=== PATIENT | female | born 1980 | race African-American/Black ===

== ENCOUNTER 2018-05-17 12:29 | Observation (INO) ==
[2018-05-17] MEDS ORDERED: Sod Chloride 0.9% Inj 1,000 ML IV.SIG ONE (12:33)
[2018-05-17 13:03] LABS: Baso # (Auto) 0.1 th/mm3 (0.0-0.2); Eos # (Auto) 0.1 th/mm3 (0.0-0.4); Eos % (Auto) 1.7 % (0.0-4.0); Hematocrit 24.4 % (35.0-46.0); Lymph # (Auto) 1.6 th/mm3 (1.0-4.8); Lymph % (Auto) 19.1 % (9.0-44.0); Mean Corpuscular Hemoglobin 15.6 pg (27.0-34.0); Mean Corpuscular Volume 55.4 fL (80.0-100.0); Mean Platelet Volume 8.7 fL (7.0-11.0); Mono % (Auto) 11.8 % (0.0-8.0); Neut # (Auto) 5.7 th/mm3 (1.8-7.7); Neut % (Auto) 66.4 % (16.0-70.0); Platelet Count 319 th/mm3 (150-450); Red Blood Count 4.41 mil/mm3 (4.00-5.30); Red Cell Distribution Width 25.7 % (11.6-17.2); White Blood Count 8.6 th/mm3 (4.0-11.0)
[2018-05-17 13:10] LABS: Mean Corpuscular HGB Conc 28.2 % (32.0-36.0)
[2018-05-17 13:13] LABS: Hemoglobin 6.9 gm/dL (11.6-15.3)
--- NOTE | 2018-05-17 13:13 | ED ---
HPI General Chief Complaint: Overdose Stated Complaint: Poss OD Time Seen by Provider: 05/17/18 12:32 Source: patient, EMS and old records reviewed Mode of arrival: EMS Limitations: altered mental status and other (intoxicated) History of Present Illness HPI Narrative: 38-year-old female that presents to the ED for evaluation of possible overdose. Patient apparently has been acting bizarre which is what prompted evaluation. [facility] was called because patient was acting bizarre in a community center. Apparently she frequents this center and the staff there were concerned because she was acting bizarre. Per EVAC she has been able to answer questions but she does go in and out of some bizarre behavior. She does have a history of polysubstance abuse. She denies any symptoms at this time but is hard to get a history from her. She denies any trauma. She does not appear to have any signs of trauma. No history of seizures. During my examination she is very restless and keeps moving all extremities. She jerks her head. She is having a hard time staying down. History is very limited. She does answer some yes or no questions but it is hard to assess as she continues to be very bizarre. Related Data Home Medications Medication Instructions Recorded Confirmed No Known Home Medications 03/25/18 03/25/18 Allergies Allergy/AdvReac Type Severity Reaction Status Date / Time No Known Allergies Allergy Verified 03/25/18 11:03 Review of Systems ROS: all other systems reviewed are negative PMFSH History History Provided By: Medical Record and Ict Business Analyst / EMT Medical History Medical History Medical history unknown (Acute) Substance abuse (Acute) Surgical history unknown (Acute) Social History Social History Substance History: Active Abuse Smoking Status: Unknown if ever smoked How Often Do You Have a Drink Containing Alcohol: Unable to Obtain Recent Travel in [place] within the Last 8 Weeks: No Recent Out of Country Travel within the Last 8 Weeks: No Exam Narrative Exam Narrative: GENERAL: Altered. SKIN: Focused skin assessment warm/dry. HEAD: Atraumatic. Normocephalic. EYES: Pupils equal and round. No scleral icterus. No injection or drainage. ENT: No nasal bleeding or discharge. Mucous membranes pink and moist. Tongue is midline. No uvula deviation. NECK: Trachea midline. No JVD. CARDIOVASCULAR: Regular rate and rhythm. No murmur appreciated. RESPIRATORY: No accessory muscle use. Clear to auscultation. Breath sounds equal bilaterally. GASTROINTESTINAL: Abdomen soft, non-tender, nondistended. Hepatic and splenic margins not palpable. MUSCULOSKELETAL: No obvious deformities. No clubbing. No cyanosis. No edema. Full range of motion of the upper and lower extremities bilaterally. 2+ pulses bilaterally. NEUROLOGICAL: Awake and alert. No obvious cranial nerve deficits. Motor grossly within normal limits. Normal speech. PSYCHIATRIC: Altered mood and affect; insight and judgment questionable. Course Initial Documented Vital Signs Respiratory Rate 18 05/17/18 12:33 Blood Pressure 132/83 05/17/18 12:33 Pulse Oximetry 100 05/17/18 12:33 Last Documented Vital Signs Respiratory Rate 18 05/17/18 12:33 Blood Pressure 132/83 05/17/18 12:33 Pulse Oximetry 98 05/17/18 14:11 Medical Decision Making [facility] Narrative Medical decision making narrative: 38-year-old female who presents to the ED for evaluation of overdose. Patient was properly examined and was found to have signs and symptoms consistent appears to be likely blood substance abuse. She is very hard to get a history. She appears to be very bizarre. Patient was given Ativan IV with improvement of the jerking. She answers some questions with again is really hard to get a history from her. I did review her records and she had a similar episode around March and she came positive for multiple drugs. She apparently does have a history of substance abuse and apparently has been using again. At this time labs and imaging were ordered. Labs and imaging were positive for what appears to be anemia. Unclear if this symptomatic. Patient herself is very altered. For secondary to a rectal exam because she is not consentable to do the rectal exam. He does appear that she does have anemia from her previous labs but this appears to be a little bit more down. I suspect that she might likely have a microcytic anemia that is chronic. I ordered blood. Because she is unfortunately still altered recommend admission for further evaluation and treatment. Case discussed with my attending who agrees with plan. Case discussed with residents agreed to admission to their service. Medical Screen Exam Complete: Yes Emergency Medical Condition: Yes Differential Diagnosis Differential Diagnosis: Altered mental status versus overdose versus polysubstance abuse Medical Records Medical records reviewed: Yes I reviewed the patient's medical records. Lab Data Lab results reviewed: Yes I reviewed the patient's lab results. Result diagrams: 05/17/18 12:50 05/17/18 12:50 Lab Results 05/17/18 05/17/18 05/17/18 Range/Units 12:50 12:50 12:50 WBC 8.6 (4.0-11.0) th/mm3 RBC 4.41 (4.00-5.30) mil/mm3 Hgb 6.9 L* (11.6-15.3) gm/dL Hct 24.4 L (35.0-46.0) % MCV 55.4 L (80.0-100.0) fL MCH 15.6 L (27.0-34.0) pg MCHC 28.2 L (32.0-36.0) % RDW 25.7 H (11.6-17.2) % Plt Count 319 (150-450) th/mm3 MPV 8.7 (7.0-11.0) fL Prelim Diff (Auto) Slide review pending Neut % (Auto) 66.4 (16.0-70.0) % Lymph % (Auto) 19.1 (9.0-44.0) % [place] % (Auto) 11.8 H (0.0-8.0) % Eos % (Auto) 1.7 (0.0-4.0) % Baso % (Auto) 1.0 (0.0-2.0) % Neut # (Auto) 5.7 (1.8-7.7) th/mm3 Lymph # (Auto) 1.6 (1.0-4.8) th/mm3 [place] # (Auto) 1.0 H (0.0-0.9) th/mm3 Eos # (Auto) 0.1 (0.0-0.4) th/mm3 Baso # (Auto) 0.1 (0.0-0.2) th/mm3 WBC Differential . Diff Scan Auto diff confirmed Differential Comment . Platelet Estimate Normal (Normal) Platelet Morphology Normal (Normal) Dimorphic RBCs Present H (None) Target Cells 1+ H (None) Tear Drop Cells 1+ H (None) Acanthocytes (Spur) Occ H (None) PT 10.7 (9.8-11.6) sec INR 1.1 Ratio Sodium 142 (136-145) meq/L Potassium 3.0 L (3.5-5.1) meq/L Chloride 106 (98-107) meq/L Carbon Dioxide 29.6 (21.0-32.0) meq/L Anion Gap 6 (5-15) meq/L BUN 7 (7-18) mg/dL Creatinine 0.96 (0.50-1.00) mg/dL Estimated GFR 78 L (>89) mL/min Random Glucose 85 (74-106) mg/dL Lactic Acid (0.4-2.0) mmol/L Calcium 8.4 L (8.5-10.1) mg/dL Total Bilirubin 0.3 (0.2-1.0) mg/dL AST 22 (15-37) U/L ALT 16 (10-53) U/L Alkaline Phosphatase 94 (45-117) U/L Total Protein 7.6 (6.4-8.2) g/dL Albumin 3.3 L (3.4-5.0) g/dL Salicylates (2.8-20.0) mg/dL Acetaminophen Less than 2.0 L (10.0-30.0) mcg/mL Serum Alcohol Less than 3 (0-5) mg/dL Blood Type Blood Type Recheck Antibody Screen MTS Gel Crossmatch 05/17/18 05/17/18 05/17/18 Range/Units 12:50 12:50 13:16 WBC (4.0-11.0) th/mm3 RBC (4.00-5.30) mil/mm3 Hgb (11.6-15.3) gm/dL Hct (35.0-46.0) % MCV (80.0-100.0) fL MCH (27.0-34.0) pg MCHC (32.0-36.0) % RDW (11.6-17.2) % Plt Count (150-450) th/mm3 MPV (7.0-11.0) fL Prelim Diff (Auto) Neut % (Auto) (16.0-70.0) % Lymph % (Auto) (9.0-44.0) % [place] % (Auto) (0.0-8.0) % Eos % (Auto) (0.0-4.0) % Baso % (Auto) (0.0-2.0) % Neut # (Auto) (1.8-7.7) th/mm3 Lymph # (Auto) (1.0-4.8) th/mm3 [place] # (Auto) (0.0-0.9) th/mm3 Eos # (Auto) (0.0-0.4) th/mm3 Baso # (Auto) (0.0-0.2) th/mm3 WBC Differential Diff Scan Differential Comment Platelet Estimate (Normal) Platelet Morphology (Normal) Dimorphic RBCs (None) Target Cells (None) Tear Drop Cells (None) Acanthocytes (Spur) (None) PT (9.8-11.6) sec INR Ratio Sodium (136-145) meq/L Potassium (3.5-5.1) meq/L Chloride (98-107) meq/L Carbon Dioxide (21.0-32.0) meq/L Anion Gap (5-15) meq/L BUN (7-18) mg/dL Creatinine (0.50-1.00) mg/dL Estimated GFR (>89) mL/min Random Glucose (74-106) mg/dL Lactic Acid 0.9 (0.4-2.0) mmol/L Calcium (8.5-10.1) mg/dL Total Bilirubin (0.2-1.0) mg/dL AST (15-37) U/L ALT (10-53) U/L Alkaline Phosphatase (45-117) U/L Total Protein (6.4-8.2) g/dL Albumin (3.4-5.0) g/dL Salicylates 3.7 (2.8-20.0) mg/dL Acetaminophen (10.0-30.0) mcg/mL Serum Alcohol (0-5) mg/dL Blood Type B Positive Blood Type Recheck Not needed Antibody Screen Negative MTS Gel Crossmatch 05/17/18 Range/Units 15:03 WBC (4.0-11.0) th/mm3 RBC (4.00-5.30) mil/mm3 Hgb (11.6-15.3) gm/dL Hct (35.0-46.0) % MCV (80.0-100.0) fL MCH (27.0-34.0) pg MCHC (32.0-36.0) % RDW (11.6-17.2) % Plt Count (150-450) th/mm3 MPV (7.0-11.0) fL Prelim Diff (Auto) Neut % (Auto) (16.0-70.0) % Lymph % (Auto) (9.0-44.0) % [place] % (Auto) (0.0-8.0) % Eos % (Auto) (0.0-4.0) % Baso % (Auto) (0.0-2.0) % Neut # (Auto) (1.8-7.7) th/mm3 Lymph # (Auto) (1.0-4.8) th/mm3 [place] # (Auto) (0.0-0.9) th/mm3 Eos # (Auto) (0.0-0.4) th/mm3 Baso # (Auto) (0.0-0.2) th/mm3 WBC Differential Diff Scan Differential Comment Platelet Estimate (Normal) Platelet Morphology (Normal) Dimorphic RBCs (None) Target Cells (None) Tear Drop Cells (None) Acanthocytes (Spur) (None) PT (9.8-11.6) sec INR Ratio Sodium (136-145) meq/L Potassium (3.5-5.1) meq/L Chloride (98-107) meq/L Carbon Dioxide (21.0-32.0) meq/L Anion Gap (5-15) meq/L BUN (7-18) mg/dL Creatinine (0.50-1.00) mg/dL Estimated GFR (>89) mL/min Random Glucose (74-106) mg/dL Lactic Acid (0.4-2.0) mmol/L Calcium (8.5-10.1) mg/dL Total Bilirubin (0.2-1.0) mg/dL AST (15-37) U/L ALT (10-53) U/L Alkaline Phosphatase (45-117) U/L Total Protein (6.4-8.2) g/dL Albumin (3.4-5.0) g/dL Salicylates (2.8-20.0) mg/dL Acetaminophen (10.0-30.0) mcg/mL Serum Alcohol (0-5) mg/dL Blood Type Blood Type Recheck Antibody Screen MTS Gel Crossmatch See Detail Imaging Data Attestation: I personally reviewed and interpreted this imaging study as follows : Radiologist's impression: Head CT 05/17/18 12:46 CONCLUSION: 1. No evidence of acute intracranial abnormality. . Discharge Plan Physicians Team ED Provider: David Donaldson ED Midlevel Provider: Sonido Matt Primary Care Provider: Primary Care Farhani,Jazlyn Rxs /Orders / Referrals /Forms Prescriptions: No Action No Known Home Medications RF: 0 Status ED Status: With Doctor
[2018-05-17 13:22] LABS: INR 1.1 Ratio; Prothrombin Time 10.7 sec (9.8-11.6)
[2018-05-17 13:29] LABS: Alanine Aminotransferase 16 U/L (10-53); Albumin 3.3 g/dL (3.4-5.0); Anion Gap 6 meq/L (5-15); Aspartate Aminotransferase 22 U/L (15-37); Blood Urea Nitrogen 7 mg/dL (7-18); Calcium 8.4 mg/dL (8.5-10.1); Carbon Dioxide 29.6 meq/L (21.0-32.0); Chloride 106 meq/L (98-107); Glomerular Filtration Rate 78 mL/min (>89); Glucose,Random 85 mg/dL (74-106); Sodium 142 meq/L (136-145)
[2018-05-17 13:30] LABS: Alkaline Phosphatase 94 U/L (45-117); Total Protein 7.6 g/dL (6.4-8.2)
[2018-05-17 13:40] LABS: Target Cells 1+; Tear Drop Cells 1+
[2018-05-17 13:41] LABS: Acanthocytes Occ; Dimorphic RBC Present; Platelet Estimate Normal (Normal); Platelet Morphology Normal (Normal)
--- NOTE | 2018-05-17 13:51 | CT ---
EXAM DATE: 05/17/2018 12:55 PM EDT AGE/SEX: 38 years / Female INDICATIONS: Altered mental status CLINICAL DATA: This is the patient's initial encounter. Patient reports that signs and symptoms have been present for 1 day and indicates a pain score of 0/10. MEDICAL/SURGICAL HISTORY: None. None. RADIATION DOSE: 42.01 CTDI (mGy) COMPARISON: No prior exams available for comparison. TECHNIQUE: CT of the head without contrast. Using automated exposure control and adjustment of the mA and/or kV according to patient size, radiation dose was kept as low as reasonably achievable to ob tain optimal diagnostic quality images. DICOM format image data is available electronically for revi ew and comparison. FINDINGS: Cerebrum: The ventricles are normal for age. No evidence of midline shift, mass lesion, hemorrhage or acute infarction. No extraaxial fluid collections are seen. Metallic foreign bodies are noted wit hin the posterior parietal skull bilaterally. Posterior Fossa: The cerebellum and brainstem are intact. The 4th ventricle is midline. The cerebe llopontine angle is unremarkable. Extracranial: The visualized portion of the orbits is intact. Skull: The calvaria is intact. No evidence of skull fracture. CONCLUSION: 1. No evidence of acute intracranial abnormality. . Electronically signed by: Antonio Portillo MD 05/17/2018 1:49 PM EDT
--- NOTE | 2018-05-17 15:36 | P.HPFP ---
History of Present Illness Primary Care Physician: No Primary Care Physician <Maggy Arias 05/18/18 13:06> No Primary Care Physician <Trudy Ann 05/17/18 15:36> Chief Complaint: suspected substance abuse <Trudy Ann 05/17/18 16:38> History of Present Illness: Story as provided by ED physician. Pt unable to provide any history. Did not answer to questions. Was shaking and moving in bed. Was slightly cooperative with minimal physical exam. <Trudy Ann 05/17/18 16:38> - Diagnosis (1) Altered mental status (2) Substance abuse (3) Anemia (4) Hypokalemia <Trudy Ann V 05/17/18 16:13> (1) Cocaine intoxication (2) Altered mental status (3) Anemia (4) Heart murmur (5) Hypokalemia <Maggy Arias 05/18/18 13:06> Review of Systems unobtainable due to mental status <Trudy Ann 05/17/18 16:38> PMFSH - History History Provided By: Medical Record, Sorter/Assay Tech / EMT <Trudy Ann 05/17/18 15:36> - Medical / Surgical Hx Neg / Unobtainable Medical Problems Denied: Unable to Obtain <Trudy Ann 05/17/18 16 :38> - Medical History Medical History: Medical History (Last Reviewed 05/17/18 @ 16:16 by Trudy Ortega MD, R1 ) Medical history unknown Substance abuse Surgical history unknown <Maggy Arias 05/18/18 13:06> Medical History (Last Reviewed 05/17/18 @ 16:16 by Trudy Ortega MD, R1 ) Medical history unknown Substance abuse Surgical history unknown <Trudy Ann 05/17/18 16:38> - Tobacco History Smoking Status: Unknown if ever smoked <Trudy Ann V 05/17/18 15:36 > - Alcohol History How Often Do You Have a Drink Containing Alcohol: Unable to Obtain <Trudy Ann V 05/17/18 15:36> - Substance Use History Substance History: Active Abuse <Trudy Ann V 05/17/18 15:36> - Travel History Recent Travel in the [place] Within the Last 8 Weeks: No <Trudy Ann V 05/17/18 15:36> Recent Travel Out of the Country Within the Last 8 Weeks: No <Trudy Ann V 05/17/18 15:36> - Immunization History Tetanus Immunization: Unable to Assess <Trudy Ann V 05/17/18 15:36 > Hx Influenza Vaccine This Season: Unable to Assess <Trudy Ann V 15:36> Medications and Allergies Allergies Allergy/AdvReac Type Severity Reaction Status Date / Time No Known Allergies Allergy Verified 03/25/18 11:03 <Maggy Arias 05/18/18 13:06> Home Medications Medication Instructions Recorded Confirmed Type No Known Home Medications 03/25/18 03/25/18 History <Maggy Arias 05/18/18 13:06> Active Medications: Active Medications Acetaminophen (Tylenol) 650 mg PO Q4H PRN PRN Reason: Temp > 100.4 Ferrous Sulfate (Ferosul) 325 mg PO BID@1200,1700 WALTER Potassium Chloride/Sodium Chloride (Ns + Kcl 20 Meq Inj) 1,000 mls @ 140 mls/ hr IV.CONT .Q7H9M WALTER Last Admin: 05/18/18 11:02 Dose: 140 mls/hr Lorazepam (Ativan Inj) 1 mg IV.PUSH Q4H PRN PRN Reason: WITHDRAWAL Last Admin: 05/18/18 11:02 Dose: 1 mg Ondansetron HCl (Zofran Inj) 4 mg IV.PUSH Q6H PRN PRN Reason: NAUSEA OR VOMITING <Maggy Arias 05/18/18 13:06> Exam Vital signs: Vital Signs 05/17/18 14:11 05/17/18 14:30 05/17/18 20:00 Temperature 98.4 F Pulse Rate 92 H 80 Respiratory Rate 19 18 Blood Pressure 135/78 144/72 H Pulse Oximetry 98 99 98 05/18/18 00:00 05/18/18 03:32 05/18/18 08:00 Temperature 99.4 F 98.9 F 98.1 F Pulse Rate 64 74 87 Respiratory Rate 18 16 18 Blood Pressure 167/80 H 121/75 149/86 H Pulse Oximetry 99 100 18 L 05/18/18 12:00 Temperature 98.1 F Pulse Rate 90 Respiratory Rate 20 Blood Pressure 151/97 H Pulse Oximetry 99 Intake & Output 05/17/18 05/18/18 05/18/18 18:59 06:59 18:59 Intake Total 1000 / 1000 1010 / 1010 1000 / 1000 Balance 1000 / 1000 1010 / 1010 1000 / 1000 Weight 104.326 kg 104.326 kg Intake: IV 1000 / 1000 1010 / 1010 1000 / 1000 NS + KCl 20 mEq Inj 1,000 ML @ 1000 / 1000 140 mls/hr IV.CONT .Q7H9M WALTER Rx#:[id number] KCl Inj 20 MEQ In NS Inj 1,000 1010 / 1010 ML @ 140 mls/hr IV.CONT .Q7H13M WALTER Rx#:[id number] NS Inj 1,000 ML @ Wide Open IV. 1000 / 1000 SIG BOLUS ONE Rx#:[id number] Other: # Voids 3 Weight On Admission 104.326 kg <Maggy Arias R - 05/18/18 13:06> Vital Signs 05/17/18 12:33 05/17/18 14:11 Respiratory Rate 18 Blood Pressure 132/83 Pulse Oximetry 100 98 <Trudy Ann V - 05/17/18 15:36> Narrative: Limited Physical Exam due to patient's current status GENERAL: pt laying in be moving all extremities. Non cooperative, will not answer questions. Continuously moving. SKIN: Warm and dry. HEAD: Normocephalic. EYES: unable to visualize. Pt will not open her eyes CARDIOVASCULAR: limited. Regular rate and rhythm RESPIRATORY: Breath sounds equal bilaterally. No accessory muscle use. GASTROINTESTINAL: Abdomen soft, +BS MUSCULOSKELETAL: No cyanosis, or edema. <Trudy Ann V - 05/17/18 16:38> Results - Labs Result diagrams: 05/18/18 06:58 05/18/18 06:58 <Maggy Arias - 05/18/18 13:06> Abnormal lab results 05/17/18 05/17/18 05/17/18 Range/Units 12:50 12:50 15:03 Hgb 6.9 L* (11.6-15.3) gm/dL Hct 24.4 L (35.0-46.0) % MCV 55.4 L (80.0-100.0) fL MCH 15.6 L (27.0-34.0) pg MCHC 28.2 L (32.0-36.0) % RDW 25.7 H (11.6-17.2) % [place] % (Auto) 11.8 H (0.0-8.0) % [place] # (Auto) 1.0 H (0.0-0.9) th/mm3 Dimorphic RBCs Present H (None) Target Cells 1+ H (None) Tear Drop Cells 1+ H (None) Ovalocytes (None) Acanthocytes (Spur) Occ H (None) Potassium 3.0 L (3.5-5.1) meq/L Chloride (98-107) meq/L BUN (7-18) mg/dL Estimated GFR 78 L (>89) mL/min Random Glucose (74-106) mg/dL Calcium 8.4 L (8.5-10.1) mg/dL Iron (50-170) mcg/dL % Saturation (20-50) % Albumin 3.3 L (3.4-5.0) g/dL Urine Clarity (Clear) Urine Ketones (Negative) mg/dL Urine Mucus (Occasional) /lpf Acetaminophen Less than 2.0 L (10.0-30.0) mcg/mL Urine Cocaine Screen (Neg) MTS Gel Crossmatch See Detail 05/17/18 05/18/18 05/18/18 Range/Units 20:15 01:33 01:33 Hgb 7.2 L (11.6-15.3) gm/dL Hct 24.8 L (35.0-46.0) % MCV (80.0-100.0) fL MCH (27.0-34.0) pg MCHC (32.0-36.0) % RDW (11.6-17.2) % [place] % (Auto) (0.0-8.0) % [place] # (Auto) (0.0-0.9) th/mm3 Dimorphic RBCs (None) Target Cells (None) Tear Drop Cells (None) Ovalocytes (None) Acanthocytes (Spur) (None) Potassium (3.5-5.1) meq/L Chloride (98-107) meq/L BUN (7-18) mg/dL Estimated GFR (>89) mL/min Random Glucose (74-106) mg/dL Calcium (8.5-10.1) mg/dL Iron (50-170) mcg/dL % Saturation (20-50) % Albumin (3.4-5.0) g/dL Urine Clarity Hazy H (Clear) Urine Ketones Trace H (Negative) mg/dL Urine Mucus Few H (Occasional) /lpf Acetaminophen (10.0-30.0) mcg/mL Urine Cocaine Screen Pos H (Neg) MTS Gel Crossmatch 05/18/18 05/18/18 05/18/18 Range/Units 06:58 06:58 06:58 Hgb 7.1 L (11.6-15.3) gm/dL Hct 25.1 L (35.0-46.0) % MCV 55.4 L (80.0-100.0) fL MCH 15.8 L (27.0-34.0) pg MCHC 28.5 L (32.0-36.0) % RDW 25.7 H (11.6-17.2) % [place] % (Auto) 13.2 H (0.0-8.0) % [place] # (Auto) (0.0-0.9) th/mm3 Dimorphic RBCs (None) Target Cells (None) Tear Drop Cells (None) Ovalocytes 1+ H (None) Acanthocytes (Spur) (None) Potassium 3.1 L (3.5-5.1) meq/L Chloride 109 H (98-107) meq/L BUN 6 L (7-18) mg/dL Estimated GFR (>89) mL/min Random Glucose 72 L (74-106) mg/dL Calcium 7.8 L (8.5-10.1) mg/dL Iron 9 L (50-170) mcg/dL % Saturation 2.5 L (20-50) % Albumin 2.8 L (3.4-5.0) g/dL Urine Clarity (Clear) Urine Ketones (Negative) mg/dL Urine Mucus (Occasional) /lpf Acetaminophen (10.0-30.0) mcg/mL Urine Cocaine Screen (Neg) MTS Gel Crossmatch Short CBC 05/17/18 05/17/18 05/18/18 Range/Units 12:50 20:15 06:58 WBC 8.6 6.0 (4.0-11.0) th/mm3 Hgb 6.9 L* 7.2 L 7.1 L (11.6-15.3) gm/dL Hct 24.4 L 24.8 L 25.1 L (35.0-46.0) % Plt Count 319 344 (150-450) th/mm3 BMP 05/17/18 05/18/18 12:50 06:58 Sodium 142 143 Potassium 3.0 L 3.1 L Chloride 106 109 H Carbon Dioxide 29.6 25.8 BUN 7 6 L Creatinine 0.96 0.78 Calcium 8.4 L 7.8 L Liver Function 05/17/18 05/18/18 Range/Units 12:50 06:58 Total Bilirubin 0.3 0.3 (0.2-1.0) mg/dL AST 22 20 (15-37) U/L ALT 16 14 (10-53) U/L Alkaline Phosphatase 94 84 (45-117) U/L Albumin 3.3 L 2.8 L (3.4-5.0) g/dL Urine 05/18/18 Range/Units 01:33 Urine Color Yellow (Yellw/Straw) Urine Clarity Hazy H (Clear) Urine pH 6.0 (5.0-8.5) Ur Specific [place] 1.016 (1.002-1.035) Urine Protein Negative (Neg-Trace) mg/dL Urine Glucose (UA) Negative (Negative) mg/dL <Maggy Arias - 05/18/18 13:06> Abnormal lab results 05/17/18 05/17/18 05/17/18 Range/Units 12:50 12:50 15:03 Hgb 6.9 L* (11.6-15.3) gm/dL Hct 24.4 L (35.0-46.0) % MCV 55.4 L (80.0-100.0) fL MCH 15.6 L (27.0-34.0) pg MCHC 28.2 L (32.0-36.0) % RDW 25.7 H (11.6-17.2) % [place] % (Auto) 11.8 H (0.0-8.0) % [place] # (Auto) 1.0 H (0.0-0.9) th/mm3 Dimorphic RBCs Present H (None) Target Cells 1+ H (None) Tear Drop Cells 1+ H (None) Acanthocytes (Spur) Occ H (None) Potassium 3.0 L (3.5-5.1) meq/L Estimated GFR 78 L (>89) mL/min Calcium 8.4 L (8.5-10.1) mg/dL Albumin 3.3 L (3.4-5.0) g/dL Acetaminophen Less than 2.0 L (10.0-30.0) mcg/mL MTS Gel Crossmatch See Detail Short CBC 05/17/18 Range/Units 12:50 WBC 8.6 (4.0-11.0) th/mm3 Hgb 6.9 L* (11.6-15.3) gm/dL Hct 24.4 L (35.0-46.0) % Plt Count 319 (150-450) th/mm3 BMP 05/17/18 12:50 Sodium 142 Potassium 3.0 L Chloride 106 Carbon Dioxide 29.6 BUN 7 Creatinine 0.96 Calcium 8.4 L Liver Function 05/17/18 Range/Units 12:50 Total Bilirubin 0.3 (0.2-1.0) mg/dL AST 22 (15-37) U/L ALT 16 (10-53) U/L Alkaline Phosphatase 94 (45-117) U/L Albumin 3.3 L (3.4-5.0) g/dL <Trudy Ann V - 05/17/18 15:36> - Imaging Impressions Head CT 05/17/18 12:46 CONCLUSION: 1. No evidence of acute intracranial abnormality. . <Maggy Arias - 05/18/18 13:06> Impressions Head CT 05/17/18 12:46 CONCLUSION: 1. No evidence of acute intracranial abnormality. . <Trudy Ann V - 05/17/18 15:36> Caprini VTE Risk Assessment Caprini VTE Risk Assessment: No/Low Risk (score <= 1) <Trudy Ann 05/17/18 16:38> Caprini Risk Assessment Model: Point Value = 1 Point Value = 2 Point Value = 3 Point Value = 5 Age 41-60 Minor surgery BMI > 25 kg/m2 Swollen legs Varicose veins or History of unexplained or recurrent spontaneous Oral contraceptives or hormone replacement Sepsis (< 1 month) Serious lung disease, including pneumonia (< 1 month) Abnormal pulmonary function Acute myocardial infarction Congestive heart failure (< 1 month) History of inflammatory bowel disease Medical patient at bed rest Age 61-74 Arthroscopic surgery Major open surgery (> 45 min) Laparoscopic surgery (> 45 min) Malignancy Confined to bed (> 72 hours) Immobilizing plaster cast Central venous access Age >= 75 History of VTE Family history of VTE Factor V Leiden Prothrombin [id number] Lupus anticoagulant Anticardiolipin antibodies Elevated serum homocysteine Heparin-induced thrombocytopenia Other congenital or acquired thrombophilia Stroke (< 1 month) Elective arthroplasty Hip, pelvis, or leg fracture Acute spinal cord injury (< 1 month) <Maggy Arias R - 05/18/18 13:06> Point Value = 1 Point Value = 2 Point Value = 3 Point Value = 5 Age 41-60 Minor surgery BMI > 25 kg/m2 Swollen legs Varicose veins or History of unexplained or recurrent spontaneous Oral contraceptives or hormone replacement Sepsis (< 1 month) Serious lung disease, including pneumonia (< 1 month) Abnormal pulmonary function Acute myocardial infarction Congestive heart failure (< 1 month) History of inflammatory bowel disease Medical patient at bed rest Age 61-74 Arthroscopic surgery Major open surgery (> 45 min) Laparoscopic surgery (> 45 min) Malignancy Confined to bed (> 72 hours) Immobilizing plaster cast Central venous access Age >= 75 History of VTE Family history of VTE Factor V Leiden Prothrombin [id number] Lupus anticoagulant Anticardiolipin antibodies Elevated serum homocysteine Heparin-induced thrombocytopenia Other congenital or acquired thrombophilia Stroke (< 1 month) Elective arthroplasty Hip, pelvis, or leg fracture Acute spinal cord injury (< 1 month) <Trudy Ann V - 05/17/18 15:36> Prophylaxis Regimen: Total Risk Factor Score Risk Level Prophylaxis Regimen 0-1 Low Early ambulation 2 Moderate Order ONE of the following: *Sequential Compression Device (SCD) *Heparin 5000 units SQ BID 3-4 Higher Order ONE of the following medications: *Heparin 5000 units SQ TID *Enoxaparin/Lovenox 40 mg SQ daily (WT < 150 kg, CrCl > 30 mL/min) *Enoxaparin/Lovenox 30 mg SQ daily (WT < 150 kg, CrCl > 10-29 mL/min) *Enoxaparin/Lovenox 30 mg SQ BID (WT < 150 kg, CrCl > 30 mL/min) AND/OR *Sequential Compression Device (SCD) 5 or more Highest Order ONE of the following medications: *Heparin 5000 units SQ TID (Preferred with Epidurals) *Enoxaparin/Lovenox 40 mg SQ daily (WT < 150 kg, CrCl > 30 mL/min) *Enoxaparin/Lovenox 30 mg SQ daily (WT < 150 kg, CrCl > 10-29 mL/min) *Enoxaparin/Lovenox 30 mg SQ BID (WT < 150 kg, CrCl > 30 mL/min) AND *Sequential Compression Device (SCD) <Maggy Arias R - 05/18/18 13:06> Total Risk Factor Score Risk Level Prophylaxis Regimen 0-1 Low Early ambulation 2 Moderate Order ONE of the following: *Sequential Compression Device (SCD) *Heparin 5000 units SQ BID 3-4 Higher Order ONE of the following medications: *Heparin 5000 units SQ TID *Enoxaparin/Lovenox 40 mg SQ daily (WT < 150 kg, CrCl > 30 mL/min) *Enoxaparin/Lovenox 30 mg SQ daily (WT < 150 kg, CrCl > 10-29 mL/min) *Enoxaparin/Lovenox 30 mg SQ BID (WT < 150 kg, CrCl > 30 mL/min) AND/OR *Sequential Compression Device (SCD) 5 or more Highest Order ONE of the following medications: *Heparin 5000 units SQ TID (Preferred with Epidurals) *Enoxaparin/Lovenox 40 mg SQ daily (WT < 150 kg, CrCl > 30 mL/min) *Enoxaparin/Lovenox 30 mg SQ daily (WT < 150 kg, CrCl > 10-29 mL/min) *Enoxaparin/Lovenox 30 mg SQ BID (WT < 150 kg, CrCl > 30 mL/min) AND *Sequential Compression Device (SCD) <Trudy Ann V - 05/17/18 15:36> Assessment and Plan - Assessment (1) Altered mental status Code(s): R41.82 - Altered mental status, unspecified Status: Acute (2) Substance abuse Code(s): F19.10 - Other psychoactive substance abuse, uncomplicated Status: Acute (3) Anemia Code(s): D64.9 - Anemia, unspecified Status: Acute (4) Hypokalemia Code(s): E87.6 - Hypokalemia Status: Acute <Trudy Ann 05/17/18 16:13> (1) Cocaine intoxication Code(s): F14.929 - Cocaine use, unspecified with intoxication, unspecified Status: Acute (2) Altered mental status Code(s): R41.82 - Altered mental status, unspecified Status: Resolved (3) Anemia Code(s): D64.9 - Anemia, unspecified Status: Chronic (4) Heart murmur Code(s): R01.1 - Cardiac murmur, unspecified Status: Acute (5) Hypokalemia Code(s): E87.6 - Hypokalemia Status: Acute <Maggy Arias 05/18/18 13:06> - Assessment and Plan 42 yr old AA female with no known PMH presenting via EMS transport due to strange behavior at [facility] she attends frequently. Prior ED visit in March with similar presentation was positive for cocaine. Unable to obtain a UDS yet. CT scan of head negative for acute bleed. Pt received IV fluids, and Ativan. Pt has a Hb of 6.7 of unknown cause. Prior hospitalization her Hb was 7.7. At this moment, pt is unable to consent to a blood transfusion. Will wait and re-evaluate. Anticipate DC in 24-48 hrs Plan - Obtain UDS when possible - Obtain blood transfusion consent when possible - Recheck Hematocrit and Hemoglobin this evening - Consider Hemoccult when patient is more cooperative - Replace K+ with 40mEq KCl and recheck in AM - Regular diet, PO hydration - SCD bilateral for DVT prophylaxis <Trudy Ann 05/17/18 16:38> Discussed Condition With: Dr. Arias and Dr. Grant <Trudy Ann 05/17/18 16:38> - Attending Attestation Late entry -- patient was seen and examined with the resident team on May 17. Agree with exam and assessment and plan as above. <Maggy Arias R - 05/18/18 13:06> <ChelseaTrudy Andres V - Last Filed: 05/17/18 16:13> (3) Anemia Qualifiers: Anemia type: unspecified type Qualified Code(s): D64.9 - Anemia, unspecified <Maggy Arias R - Last Filed: 05/18/18 13:06> (3) Anemia Qualifiers: Anemia type: unspecified type Qualified Code(s): D64.9 - Anemia, unspecified <Trudy Ann V - Last Filed: 05/17/18 16:13> (3) Anemia Qualifiers: Anemia type: unspecified type Qualified Code(s): D64.9 - Anemia, unspecified <Maggy Arias R - Last Filed: 05/18/18 13:06> (3) Anemia Qualifiers: Anemia type: unspecified type Qualified Code(s): D64.9 - Anemia, unspecified
[2018-05-17] MEDS ORDERED: Acetaminophen 325 MG Tablet PO PRN (16:04)
[2018-05-17] MEDS: Potassium Chloride Inj 20 MEQ in Sod Chloride 0.9% Inj 1,000 ML IV.CONT SCH (20:35)
[2018-05-17 20:40] LABS: Hematocrit 24.8 % (35.0-46.0); Hemoglobin 7.2 gm/dL (11.6-15.3)
[2018-05-18 01:51] LABS: Bilirubin,Urine Negative (Negative); Clarity,Urine Hazy (Clear); Color,Urine Yellow (Yellw/Straw); Glucose,Urine (UA) Negative (Negative); Leukocyte Esterase,Urine Negative (Negative); Mucus,Urine Few /lpf (Occasional); Nitrite,Urine Negative (Negative); Specific Gravity,Urine 1.016 (1.002-1.035); Squamous Epithelial Cell,Urine 2 /hpf (0-5)
[2018-05-18 01:53] LABS: Amphetamine Screen,Urine Neg (Neg); Barbiturate Screen,Urine Neg (Neg); Cannabinoid Screen,Urine Neg (Neg); Cocaine Screen,Urine Pos (Neg); Opiate Screen,Urine Neg (Neg)
[2018-05-18] MEDS: Potassium Chloride Inj 20 MEQ in Sod Chloride 0.9% Inj 1,000 ML IV.CONT SCH (02:19)
[2018-05-18 08:01] LABS: Albumin 2.8 g/dL (3.4-5.0); Anion Gap 8 meq/L (5-15); Aspartate Aminotransferase 20 U/L (15-37); Blood Urea Nitrogen 6 mg/dL (7-18); Calcium 7.8 mg/dL (8.5-10.1); Carbon Dioxide 25.8 meq/L (21.0-32.0); Chloride 109 meq/L (98-107); Glomerular Filtration Rate Greater Than 89 mL/min (>89); Glucose,Random 72 mg/dL (74-106); Potassium 3.1 meq/L (3.5-5.1); Sodium 143 meq/L (136-145)
[2018-05-18 08:02] LABS: Alanine Aminotransferase 14 U/L (10-53)
[2018-05-18 08:04] LABS: Alkaline Phosphatase 84 U/L (45-117); Total Protein 7.1 g/dL (6.4-8.2)
[2018-05-18 08:30] LABS: Baso % (Auto) 0.8 % (0.0-2.0); Eos # (Auto) 0.2 th/mm3 (0.0-0.4); Eos % (Auto) 3.6 % (0.0-4.0); Hematocrit 25.1 % (35.0-46.0); Hemoglobin 7.1 gm/dL (11.6-15.3); Lymph # (Auto) 1.3 th/mm3 (1.0-4.8); Lymph % (Auto) 21.2 % (9.0-44.0); Mean Corpuscular Hemoglobin 15.8 pg (27.0-34.0); Mean Corpuscular Volume 55.4 fL (80.0-100.0); Mean Platelet Volume 8.8 fL (7.0-11.0); Mono # (Auto) 0.8 th/mm3 (0.0-0.9); Mono % (Auto) 13.2 % (0.0-8.0); Neut # (Auto) 3.7 th/mm3 (1.8-7.7); Neut % (Auto) 61.2 % (16.0-70.0); Platelet Count 344 th/mm3 (150-450); Red Blood Count 4.52 mil/mm3 (4.00-5.30); Red Cell Distribution Width 25.7 % (11.6-17.2)
[2018-05-18 08:32] LABS: Mean Corpuscular HGB Conc 28.5 % (32.0-36.0)
[2018-05-18 09:30] LABS: Ovalocytes 1+
[2018-05-18 09:53] LABS: % Iron Saturation 2.5 % (20-50)
[2018-05-18 10:18] LABS: Folate 8.1 ng/mL (3.1-17.5)
--- NOTE | 2018-05-18 11:44 | ECG ---
Date Performed: 05/17/2018 Time Performed: 12:47:22 PTAGE: 38 years EKG: Sinus rhythm MINIMAL VOLTAGE CRITERIA FOR LVH, CONSIDER NORMAL VARIANT NONSPECIFIC T-WAVE ABNORMALITY BORDERLINE ECG INTERPRETATION BASED ON A DEFAULT AGE OF 38 YEARS NO PREVIOUS TRACING DOCTOR: Tolu Soto Interpretating Date/Time 05/18/2018 11:43:18
--- NOTE | 2018-05-18 12:35 | P.PNFP ---
Subjective Interval history: Patient was seen and evaluated this morning. She reports not feeling well. She is nauseous but denies vomiting. She feels as if her heart skips beats. Patient denies chest pain and shortness of breath. Patient admits to taking many different drugs yesterday in an attempt to commit suicide. She reports no support system. She is currently homeless. While she has a history of drug addiction, she says that she has been clean for three years and just recently relapsed. All questions were answered. <Renata Fonseca - 05/18/18 12:34> Results - Labs Result diagrams: 05/18/18 06:58 05/18/18 06:58 <Maggy Arias - 05/18/18 13:08> Abnormal lab results 05/17/18 05/17/18 05/17/18 Range/Units 12:50 12:50 15:03 Hgb 6.9 L* (11.6-15.3) gm/dL Hct 24.4 L (35.0-46.0) % MCV 55.4 L (80.0-100.0) fL MCH 15.6 L (27.0-34.0) pg MCHC 28.2 L (32.0-36.0) % RDW 25.7 H (11.6-17.2) % [place] % (Auto) 11.8 H (0.0-8.0) % [place] # (Auto) 1.0 H (0.0-0.9) th/mm3 Dimorphic RBCs Present H (None) Target Cells 1+ H (None) Tear Drop Cells 1+ H (None) Ovalocytes (None) Acanthocytes (Spur) Occ H (None) Potassium 3.0 L (3.5-5.1) meq/L Chloride (98-107) meq/L BUN (7-18) mg/dL Estimated GFR 78 L (>89) mL/min Random Glucose (74-106) mg/dL Calcium 8.4 L (8.5-10.1) mg/dL Iron (50-170) mcg/dL % Saturation (20-50) % Albumin 3.3 L (3.4-5.0) g/dL Urine Clarity (Clear) Urine Ketones (Negative) mg/dL Urine Mucus (Occasional) /lpf Acetaminophen Less than 2.0 L (10.0-30.0) mcg/mL Urine Cocaine Screen (Neg) MTS Gel Crossmatch See Detail 05/17/18 05/18/18 05/18/18 Range/Units 20:15 01:33 01:33 Hgb 7.2 L (11.6-15.3) gm/dL Hct 24.8 L (35.0-46.0) % MCV (80.0-100.0) fL MCH (27.0-34.0) pg MCHC (32.0-36.0) % RDW (11.6-17.2) % [place] % (Auto) (0.0-8.0) % [place] # (Auto) (0.0-0.9) th/mm3 Dimorphic RBCs (None) Target Cells (None) Tear Drop Cells (None) Ovalocytes (None) Acanthocytes (Spur) (None) Potassium (3.5-5.1) meq/L Chloride (98-107) meq/L BUN (7-18) mg/dL Estimated GFR (>89) mL/min Random Glucose (74-106) mg/dL Calcium (8.5-10.1) mg/dL Iron (50-170) mcg/dL % Saturation (20-50) % Albumin (3.4-5.0) g/dL Urine Clarity Hazy H (Clear) Urine Ketones Trace H (Negative) mg/dL Urine Mucus Few H (Occasional) /lpf Acetaminophen (10.0-30.0) mcg/mL Urine Cocaine Screen Pos H (Neg) MTS Gel Crossmatch 05/18/18 05/18/18 05/18/18 Range/Units 06:58 06:58 06:58 Hgb 7.1 L (11.6-15.3) gm/dL Hct 25.1 L (35.0-46.0) % MCV 55.4 L (80.0-100.0) fL MCH 15.8 L (27.0-34.0) pg MCHC 28.5 L (32.0-36.0) % RDW 25.7 H (11.6-17.2) % [place] % (Auto) 13.2 H (0.0-8.0) % [place] # (Auto) (0.0-0.9) th/mm3 Dimorphic RBCs (None) Target Cells (None) Tear Drop Cells (None) Ovalocytes 1+ H (None) Acanthocytes (Spur) (None) Potassium 3.1 L (3.5-5.1) meq/L Chloride 109 H (98-107) meq/L BUN 6 L (7-18) mg/dL Estimated GFR (>89) mL/min Random Glucose 72 L (74-106) mg/dL Calcium 7.8 L (8.5-10.1) mg/dL Iron 9 L (50-170) mcg/dL % Saturation 2.5 L (20-50) % Albumin 2.8 L (3.4-5.0) g/dL Urine Clarity (Clear) Urine Ketones (Negative) mg/dL Urine Mucus (Occasional) /lpf Acetaminophen (10.0-30.0) mcg/mL Urine Cocaine Screen (Neg) MTS Gel Crossmatch Short CBC 05/17/18 05/17/18 05/18/18 Range/Units 12:50 20:15 06:58 WBC 8.6 6.0 (4.0-11.0) th/mm3 Hgb 6.9 L* 7.2 L 7.1 L (11.6-15.3) gm/dL Hct 24.4 L 24.8 L 25.1 L (35.0-46.0) % Plt Count 319 344 (150-450) th/mm3 BMP 05/17/18 05/18/18 12:50 06:58 Sodium 142 143 Potassium 3.0 L 3.1 L Chloride 106 109 H Carbon Dioxide 29.6 25.8 BUN 7 6 L Creatinine 0.96 0.78 Calcium 8.4 L 7.8 L Liver Function 05/17/18 05/18/18 Range/Units 12:50 06:58 Total Bilirubin 0.3 0.3 (0.2-1.0) mg/dL AST 22 20 (15-37) U/L ALT 16 14 (10-53) U/L Alkaline Phosphatase 94 84 (45-117) U/L Albumin 3.3 L 2.8 L (3.4-5.0) g/dL Urine 05/18/18 Range/Units 01:33 Urine Color Yellow (Yellw/Straw) Urine Clarity Hazy H (Clear) Urine pH 6.0 (5.0-8.5) Ur Specific [place] 1.016 (1.002-1.035) Urine Protein Negative (Neg-Trace) mg/dL Urine Glucose (UA) Negative (Negative) mg/dL <Maggy Arias Dione - 05/18/18 13:08> Abnormal lab results 05/17/18 05/17/18 05/17/18 Range/Units 12:50 12:50 15:03 Hgb 6.9 L* (11.6-15.3) gm/dL Hct 24.4 L (35.0-46.0) % MCV 55.4 L (80.0-100.0) fL MCH 15.6 L (27.0-34.0) pg MCHC 28.2 L (32.0-36.0) % RDW 25.7 H (11.6-17.2) % [place] % (Auto) 11.8 H (0.0-8.0) % [place] # (Auto) 1.0 H (0.0-0.9) th/mm3 Dimorphic RBCs Present H (None) Target Cells 1+ H (None) Tear Drop Cells 1+ H (None) Ovalocytes (None) Acanthocytes (Spur) Occ H (None) Potassium 3.0 L (3.5-5.1) meq/L Chloride (98-107) meq/L BUN (7-18) mg/dL Estimated GFR 78 L (>89) mL/min Random Glucose (74-106) mg/dL Calcium 8.4 L (8.5-10.1) mg/dL Iron (50-170) mcg/dL % Saturation (20-50) % Albumin 3.3 L (3.4-5.0) g/dL Urine Clarity (Clear) Urine Ketones (Negative) mg/dL Urine Mucus (Occasional) /lpf Acetaminophen Less than 2.0 L (10.0-30.0) mcg/mL Urine Cocaine Screen (Neg) MTS Gel Crossmatch See Detail 05/17/18 05/18/18 05/18/18 Range/Units 20:15 01:33 01:33 Hgb 7.2 L (11.6-15.3) gm/dL Hct 24.8 L (35.0-46.0) % MCV (80.0-100.0) fL MCH (27.0-34.0) pg MCHC (32.0-36.0) % RDW (11.6-17.2) % [place] % (Auto) (0.0-8.0) % [place] # (Auto) (0.0-0.9) th/mm3 Dimorphic RBCs (None) Target Cells (None) Tear Drop Cells (None) Ovalocytes (None) Acanthocytes (Spur) (None) Potassium (3.5-5.1) meq/L Chloride (98-107) meq/L BUN (7-18) mg/dL Estimated GFR (>89) mL/min Random Glucose (74-106) mg/dL Calcium (8.5-10.1) mg/dL Iron (50-170) mcg/dL % Saturation (20-50) % Albumin (3.4-5.0) g/dL Urine Clarity Hazy H (Clear) Urine Ketones Trace H (Negative) mg/dL Urine Mucus Few H (Occasional) /lpf Acetaminophen (10.0-30.0) mcg/mL Urine Cocaine Screen Pos H (Neg) MTS Gel Crossmatch 05/18/18 05/18/18 05/18/18 Range/Units 06:58 06:58 06:58 Hgb 7.1 L (11.6-15.3) gm/dL Hct 25.1 L (35.0-46.0) % MCV 55.4 L (80.0-100.0) fL MCH 15.8 L (27.0-34.0) pg MCHC 28.5 L (32.0-36.0) % RDW 25.7 H (11.6-17.2) % [place] % (Auto) 13.2 H (0.0-8.0) % [place] # (Auto) (0.0-0.9) th/mm3 Dimorphic RBCs (None) Target Cells (None) Tear Drop Cells (None) Ovalocytes 1+ H (None) Acanthocytes (Spur) (None) Potassium 3.1 L (3.5-5.1) meq/L Chloride 109 H (98-107) meq/L BUN 6 L (7-18) mg/dL Estimated GFR (>89) mL/min Random Glucose 72 L (74-106) mg/dL Calcium 7.8 L (8.5-10.1) mg/dL Iron 9 L (50-170) mcg/dL % Saturation 2.5 L (20-50) % Albumin 2.8 L (3.4-5.0) g/dL Urine Clarity (Clear) Urine Ketones (Negative) mg/dL Urine Mucus (Occasional) /lpf Acetaminophen (10.0-30.0) mcg/mL Urine Cocaine Screen (Neg) MTS Gel Crossmatch Short CBC 05/17/18 05/17/18 05/18/18 Range/Units 12:50 20:15 06:58 WBC 8.6 6.0 (4.0-11.0) th/mm3 Hgb 6.9 L* 7.2 L 7.1 L (11.6-15.3) gm/dL Hct 24.4 L 24.8 L 25.1 L (35.0-46.0) % Plt Count 319 344 (150-450) th/mm3 BMP 05/17/18 05/18/18 12:50 06:58 Sodium 142 143 Potassium 3.0 L 3.1 L Chloride 106 109 H Carbon Dioxide 29.6 25.8 BUN 7 6 L Creatinine 0.96 0.78 Calcium 8.4 L 7.8 L Liver Function 05/17/18 05/18/18 Range/Units 12:50 06:58 Total Bilirubin 0.3 0.3 (0.2-1.0) mg/dL AST 22 20 (15-37) U/L ALT 16 14 (10-53) U/L Alkaline Phosphatase 94 84 (45-117) U/L Albumin 3.3 L 2.8 L (3.4-5.0) g/dL Urine 05/18/18 Range/Units 01:33 Urine Color Yellow (Yellw/Straw) Urine Clarity Hazy H (Clear) Urine pH 6.0 (5.0-8.5) Ur Specific [place] 1.016 (1.002-1.035) Urine Protein Negative (Neg-Trace) mg/dL Urine Glucose (UA) Negative (Negative) mg/dL <Renata Fonseca - 05/18/18 12:34> - Imaging Impressions Head CT 05/17/18 12:46 CONCLUSION: 1. No evidence of acute intracranial abnormality. . <Maggy Arias 05/18/18 13:08> Impressions Head CT 05/17/18 12:46 CONCLUSION: 1. No evidence of acute intracranial abnormality. . <Renata Fonseca - 05/18/18 12:34> Physical Exam Vital signs: Vital Signs 05/17/18 14:11 05/17/18 14:30 05/17/18 20:00 Temperature 98.4 F Pulse Rate 92 H 80 Respiratory Rate 19 18 Blood Pressure 135/78 144/72 H Pulse Oximetry 98 99 98 05/18/18 00:00 05/18/18 03:32 05/18/18 08:00 Temperature 99.4 F 98.9 F 98.1 F Pulse Rate 64 74 87 Respiratory Rate 18 16 18 Blood Pressure 167/80 H 121/75 149/86 H Pulse Oximetry 99 100 18 L 05/18/18 12:00 Temperature 98.1 F Pulse Rate 90 Respiratory Rate 20 Blood Pressure 151/97 H Pulse Oximetry 99 Intake & Output 05/17/18 05/18/18 05/18/18 18:59 06:59 18:59 Intake Total 1000 / 1000 1010 / 1010 1000 / 1000 Balance 1000 / 1000 1010 / 1010 1000 / 1000 Weight 104.326 kg 104.326 kg Intake: IV 1000 / 1000 1010 / 1010 1000 / 1000 NS + KCl 20 mEq Inj 1,000 ML @ 1000 / 1000 140 mls/hr IV.CONT .Q7H9M [facility] Rx#:[id number] KCl Inj 20 MEQ In NS Inj 1,000 1010 / 1010 ML @ 140 mls/hr IV.CONT .Q7H13M [facility] Rx#:[id number] NS Inj 1,000 ML @ Wide Open IV. 1000 / 1000 SIG BOLUS ONE Rx#:[id number] Other: # Voids 3 Weight On Admission 104.326 kg <Maggy Arias - 05/18/18 13:08> Vital Signs 05/17/18 12:33 05/17/18 14:11 05/17/18 14:30 Temperature Pulse Rate 92 H Respiratory Rate 18 19 Blood Pressure 132/83 135/78 Pulse Oximetry 100 98 99 05/17/18 20:00 05/18/18 00:00 05/18/18 03:32 Temperature 98.4 F 99.4 F 98.9 F Pulse Rate 80 64 74 Respiratory Rate 18 18 16 Blood Pressure 144/72 H 167/80 H 121/75 Pulse Oximetry 98 99 100 05/18/18 08:00 Temperature 98.1 F Pulse Rate 87 Respiratory Rate 18 Blood Pressure 149/86 H Pulse Oximetry 18 L <Renata Fonseca - 05/18/18 12:34> Narrative: GENERAL: Patient laying in bed, tossing restlessly, constantly moving extremities. SKIN: Warm and dry. HEAD: Normocephalic. EYES: Pupils equal and round. No scleral icterus. No injection or drainage. ENT: No nasal bleeding or discharge. Mucous membranes pink and moist. CARDIOVASCULAR: Regular rate and rhythm. JAK. RESPIRATORY: No accessory muscle use. Clear to auscultation. Breath sounds equal bilaterally. GASTROINTESTINAL: Positive bowel sounds. Abdomen soft, nondistended. Tenderness upon palpation of lower quadrants. MUSCULOSKELETAL: Extremities without clubbing, cyanosis, or edema. No obvious deformities. NEUROLOGICAL: Awake and alert. No obvious cranial nerve deficits. Normal speech. PSYCHIATRIC: Insight and judgment fair. <Renata Fonseca - 05/18/18 12:34> Assessment and Plan - Assessment (1) Cocaine intoxication Code(s): F14.929 - Cocaine use, unspecified with intoxication, unspecified Status: Acute (2) Altered mental status Code(s): R41.82 - Altered mental status, unspecified Status: Resolved (3) Anemia Code(s): D64.9 - Anemia, unspecified Status: Chronic (4) Heart murmur Code(s): R01.1 - Cardiac murmur, unspecified Status: Acute (5) Hypokalemia Code(s): E87.6 - Hypokalemia Status: Acute <Maggy Arias - 05/18/18 13:08> (1) Cocaine intoxication Code(s): F14.929 - Cocaine use, unspecified with intoxication, unspecified Status: Acute (2) Altered mental status Code(s): R41.82 - Altered mental status, unspecified Status: Resolved (3) Anemia Code(s): D64.9 - Anemia, unspecified Status: Chronic (4) Heart murmur Code(s): R01.1 - Cardiac murmur, unspecified Status: Acute (5) Hypokalemia Code(s): E87.6 - Hypokalemia Status: Acute <Renata Fonseca - 05/18/18 12:00> - Assessment and Plan Patient is a 42 year old female who presented via EMS transport to the [place] ED due to strange behavior. She has a history of polysubstance use. In ED, Hgb was found to be 6.9. Patient admitted to observation for evaluation and management of altered mental status and anemia. Altered Mental Status likely secondary to cocaine intoxication: * Patient had a prior ED visit in March with a similar presentation; she was found to be positive for cocaine at that time. Patient again positive for cocaine during this admission. She admits to polysubstance use in an attempt to commit suicide. * CT scan of head negative for acute bleed. * Ativan 1mg IV q4hr PRN withdrawal. * Consulted case management to assist with housing resources. Patient currently homeless and without a support system. Anemia: * Hgb was 7.7 during prior hospitalization. Thus, anemia is likely chronic. * Hgb stable over last 24hrs. * Iron 9L, TIBC 361, %Saturation 2.5, Vitamin B12 302, Folate 8.1. * Hemoccult pending. * Ferrous Sulfate 325mg PO BID. * Patient unable to consent for blood transfusion on admission. Hgb stable. Will continue to monitor. Heart Murmur: * New murmur, secondary to anemia versus endocarditis. * Echocardiogram ordered for evaluation. Hypokalemia: * Etiology: malnutrition - patient reports only eating ice chips. * K 40mey PO. * NS with K 20meq. FEN: Fluid: * NS + KCl 20meq at 140ml/hr. Electrolytes: * Monitor and replete as necessary. Nutrition: * Regular diet. DVT prophylaxis: * SCDs. <Renata Fonseca - 05/18/18 12:34> - Attending Attestation The exam, history, and the medical decision-making described in the above note were completed with the assistance of the resident physician. I reviewed and agree with the findings presented. Patient was seen with the resident team. Patient is motivated to stop drugs again. Maybe there will be a bed available at [facility]. Severe anemia -- this is stable and likely chronic due to poor PO intake of food. Workup still pending. <Maggy Arias - 05/18/18 13:08> <Labell,Renata - Last Filed: 05/18/18 12:00> (3) Anemia Qualifiers: Anemia type: unspecified type Qualified Code(s): D64.9 - Anemia, unspecified <Maggy Arias R - Last Filed: 05/18/18 13:08> (3) Anemia Qualifiers: Anemia type: unspecified type Qualified Code(s): D64.9 - Anemia, unspecified <Fiorella Fonsecastin - Last Filed: 05/18/18 12:00> (3) Anemia Qualifiers: Anemia type: unspecified type Qualified Code(s): D64.9 - Anemia, unspecified <Maggy Arias R - Last Filed: 05/18/18 13:08> (3) Anemia Qualifiers: Anemia type: unspecified type Qualified Code(s): D64.9 - Anemia, unspecified
[2018-05-18] MEDS: Ferrous Sulfate 325 MG Tablet PO SCH ×2 (13:00→17:54)
--- NOTE | 2018-05-18 14:33 | ECHRPT ---
Indication: POSS SEPSIS, ENDOCARDITIS CONCLUSIONS Normal left ventricular size and wall thickness. The left ventricular systolic function is normal wi th an estimated ejection fraction in the range of 60-65%. No regional wall motion abnormalities are prese nt. There is trace tricuspid valve regurgitation. The estimated pulmonary arterial pressure is 30 mmHg. BP: / HR: Rhythm: Sinus MEASUREMENTS (Male / Female) Normal Values Technical Quality:Fair 2D ECHO LV Diastolic Diameter PLAX 4.8 cm 4.2 - 5.9 / 3.9 - 5.3 cm LV Systolic Diameter PLAX 3.0 cm IVS Diastolic Thickness 1.4 cm 0.6 - 1.0 / 0.6 - 0.9 cm LVPW Diastolic Thickness 1.4 cm 0.6 - 1.0 / 0.6 - 0.9 cm LV Relative Wall Thickness 0.6 RV Internal Dim ED PLAX 2.2 cm LVOT Diameter 2.0 cm Aortic Root Diameter 2.9 cm LA Systolic Diameter LX 3.4 cm 3.0 - 4.0 / 2.7 - 3.8 cm DOPPLER AV Peak Velocity 251.0 cm/s AV Peak Gradient 25.2 mmHg AV Mean Gradient 12.0 mmHg AV Velocity Time Integral 46.8 cm LVOT Peak Velocity 164.0 cm/s LVOT Peak Gradient 10.8 mmHg LVOT Velocity Time Integral 35.5 cm AV Area Cont Eq vti 2.4 cm AV Area Cont Eq pk 2.1 cm Mitral E Point Velocity 106.0 cm/s Mitral A Point Velocity 117.0 cm/s Mitral E to A Ratio 0.9 TR Peak Velocity 224.0 cm/s TR Peak Gradient 20.0 mmHg Right Atrial Pressure 10.0 mmHg Pulmonary Artery Systolic Pressu 30.1 mmHg Right Ventricular Systolic Press 30.1 mmHg PV Peak Velocity 92.5 cm/s PV Peak Gradient 3.4 mmHg FINDINGS LEFT VENTRICLE Normal left ventricular size and wall thickness. The left ventricular systolic function is normal wi th an estimated ejection fraction in the range of 60-65%. No regional wall motion abnormalities are prese nt. RIGHT VENTRICLE Normal right ventricular size and systolic function. LEFT ATRIUM The left atrial size is normal. RIGHT ATRIUM The right atrial size is normal. ATRIAL SEPTUM No atrial level shunt is demonstrated by color flow Doppler interrogation. AORTA The aortic root and proximal ascending aorta are not well visualized. MITRAL VALVE Structurally normal mitral valve. No mitral valve stenosis or regurgitation. AORTIC VALVE Trileaflet aortic valve. No aortic valve stenosis or regurgitation. TRICUSPID VALVE There is trace tricuspid valve regurgitation. The estimated pulmonary arterial pressure is 30 mmHg. PULMONARY VALVE No pulmonary valve regurgitation or stenosis. VESSELS The inferior vena cava was not well visualized. PERICARDIUM No pericardial effusion. Andrew Lopez MD (Electronically Signed) Final Date:18 May 2018 14:32
[2018-05-18 16:30] LABS: Hematocrit 27.5 % (35.0-46.0); Hemoglobin 7.6 gm/dL (11.6-15.3)
--- NOTE | 2018-05-18 20:10 | MB ---
cc: Tracy Weaver MD DATE: 05/18/2018 CHIEF COMPLAINT: 1. Anemia. 2. Iron deficiency. HISTORY OF PRESENT ILLNESS: Ms. Kwon is a 38-year-old lady who presented to the emergency room for evaluation of possible overdose. She had been noted to be acting bizarre in a community center where she regularly attends. Per the emergency room history and physical, she has been able to answer questions, but she does go in and out and she does have bizarre behavior. She has a known history of polysubstance abuse. During my exam, she is very restless. She has constant motion of all extremities. She does intermittently answer questions, but I am unable to obtain a good history from her. PAST MEDICAL HISTORY: Polysubstance abuse. SOCIAL HISTORY: History of polysubstance abuse. Unable to get further information. FAMILY HISTORY: The patient reports that she does not have any known family members who have anemia. REVIEW OF SYSTEMS: As above in the HPI. All others negative. PHYSICAL EXAMINATION: VITAL SIGNS: Temperature 99.5, pulse 89, respiratory rate 20, blood pressure 139/72. GENERAL: Overweight lady, altered, moving all 4 extremities constantly, writhing in bed. SKIN: Warm, dry. HEAD: Normocephalic, atraumatic. EYES: PERRLA. EOMI. No scleral icterus. NECK: Supple. No palpable lymphadenopathy. CARDIOVASCULAR: Regular rate and rhythm. No murmurs. RESPIRATORY: Clear to auscultation bilaterally. No accessory muscle use. ABDOMEN: Soft, nontender and nondistended. Bowel sounds present. EXTREMITIES: No edema. NEUROLOGIC: Awake and alert, intermittently answers questions. PSYCHIATRIC: Altered with a poor recent and remote memory, lack of insight, lack of judgment. LABORATORY STUDIES: White blood cell count 8.6, hemoglobin 6.9, MCV 55.4, platelet count 319,000. PT and INR within normal limits. Chemistry studies with a potassium of 3.1, creatinine 0.78. Liver function test within normal limits. Total protein 7.1, albumin 2.8. Vitamin B12 is 302, folate is 8.1. ASSESSMENT AND PLAN: 1. Iron deficiency anemia. The patient reports that she has heavy menstrual cycles. She also reports seeing blood in her stool. Occult blood is pending at this time. Ferritin is 5, percent saturation is 2.5, total iron binding capacity is 361 and iron level is 9. This is most consistent with iron deficiency anemia. The patient will need to have intravenous iron sucrose 300 mg x 3 doses; however, I was unable to fully discuss the risks versus benefits of intravenous iron with the patient. I feel that once her mental status recovers, would discuss risks versus benefits and would give intravenous iron. She will also need a GI evaluation as she did report that she saw blood on her stool. Occult blood pending at this time. 2. Vitamin B12 deficiency. Vitamin B12 is 302. Started the patient on oral vitamin B12 supplementation. 3. Polysubstance abuse and questionable acute intoxication. Management per primary team. MD VAIBHAV Vang/ita , 07:41 PM , 07:49 PM
[2018-05-19 07:58] LABS: Mean Corpuscular Hemoglobin 14.8 pg (27.0-34.0); Mean Corpuscular Volume 55.5 fL (80.0-100.0); Mean Platelet Volume 8.8 fL (7.0-11.0); Platelet Count 363 th/mm3 (150-450); Red Cell Distribution Width 26.4 % (11.6-17.2); White Blood Count 5.9 th/mm3 (4.0-11.0)
[2018-05-19 08:23] LABS: Mean Corpuscular HGB Conc 26.7 % (32.0-36.0)
[2018-05-19 08:26] LABS: Hematocrit 25.5 % (35.0-46.0); Hemoglobin 6.8 gm/dL (11.6-15.3)
[2018-05-19 08:30] LABS: Anion Gap 11 meq/L (5-15); Blood Urea Nitrogen 5 mg/dL (7-18); Carbon Dioxide 23.5 meq/L (21.0-32.0); Chloride 112 meq/L (98-107); Glomerular Filtration Rate Greater Than 89 mL/min (>89); Glucose,Random 72 mg/dL (74-106); Potassium 3.7 meq/L (3.5-5.1); Sodium 146 meq/L (136-145)
--- NOTE | 2018-05-19 10:59 | P.PNFP ---
Subjective Interval history: Patient was seen and evaluated this morning. She is more alert and oriented than previous days. She reports feeling lousy but denies chest pain, heart palpitations, shortness of breath, nausea/vomiting, diarrhea and constipation. Patient denies active bleeding. Patient denies suicidal ideations. When mentioning that her mother had called the hospital yesterday asking about her, patient becomes tearful. She gives permission to share information with her mother. All questions were answered. <Renata Fonseca - 05/19/18 10:57> Results - Labs Result diagrams: 05/19/18 21:14 05/19/18 06:17 <Maggy Arias R - 05/20/18 11:25> Abnormal lab results 05/17/18 05/19/18 05/19/18 Range/Units 15:03 12:18 12:43 Hgb 7.3 L (11.6-15.3) gm/dL Hct 25.6 L (35.0-46.0) % MTS Gel Crossmatch See Detail See Detail 05/19/18 Range/Units 21:14 Hgb 6.9 L* (11.6-15.3) gm/dL Hct 25.5 L (35.0-46.0) % MTS Gel Crossmatch Short CBC 05/19/18 05/19/18 Range/Units 12:18 21:14 Hgb 7.3 L 6.9 L* (11.6-15.3) gm/dL Hct 25.6 L 25.5 L (35.0-46.0) % <Maggy Arias R - 05/20/18 11:25> Abnormal lab results 05/18/18 05/18/18 05/19/18 Range/Units 06:58 16:08 06:17 Hgb 7.6 L 6.8 L* (11.6-15.3) gm/dL Hct 27.5 L 25.5 L (35.0-46.0) % MCV 55.5 L (80.0-100.0) fL MCH 14.8 L (27.0-34.0) pg MCHC 26.7 L (32.0-36.0) % RDW 26.4 H (11.6-17.2) % Sodium (136-145) meq/L Chloride (98-107) meq/L BUN (7-18) mg/dL Random Glucose (74-106) mg/dL Calcium (8.5-10.1) mg/dL Ferritin 5 L (8-252) ng/mL 05/19/18 Range/Units 06:17 Hgb (11.6-15.3) gm/dL Hct (35.0-46.0) % MCV (80.0-100.0) fL MCH (27.0-34.0) pg MCHC (32.0-36.0) % RDW (11.6-17.2) % Sodium 146 H (136-145) meq/L Chloride 112 H (98-107) meq/L BUN 5 L (7-18) mg/dL Random Glucose 72 L (74-106) mg/dL Calcium 8.0 L (8.5-10.1) mg/dL Ferritin (8-252) ng/mL Short CBC 05/18/18 05/19/18 Range/Units 16:08 06:17 WBC 5.9 (4.0-11.0) th/mm3 Hgb 7.6 L 6.8 L* (11.6-15.3) gm/dL Hct 27.5 L 25.5 L (35.0-46.0) % Plt Count 363 (150-450) th/mm3 BMP 05/18/18 05/19/18 16:08 06:17 Sodium 146 H Potassium 3.6 3.7 Chloride 112 H Carbon Dioxide 23.5 BUN 5 L Creatinine 0.75 Calcium 8.0 L <Renata Fonseca - 05/19/18 10:57> Physical Exam Vital signs: Vital Signs 05/19/18 12:00 05/19/18 16:00 05/19/18 20:00 Temperature 98.9 F 99.8 F H 98.3 F Pulse Rate 76 75 78 Respiratory Rate 14 16 16 Blood Pressure 112/57 L 122/70 130/74 Pulse Oximetry 100 100 100 05/19/18 22:54 05/19/18 23:15 05/20/18 00:00 Temperature 98.7 F 98.7 F 99.2 F Pulse Rate 66 68 69 Respiratory Rate 15 15 16 Blood Pressure 125/76 130/82 125/78 Pulse Oximetry 100 100 100 05/20/18 01:07 10/07/18 01:25 05/20/18 01:48 Temperature 99.0 F 98.6 F 98.1 F Pulse Rate 66 60 73 Respiratory Rate 16 14 16 Blood Pressure 138/104 H 146/83 H 139/73 Pulse Oximetry 100 100 100 05/20/18 04:00 05/20/18 04:16 05/20/18 08:00 Temperature 98.4 F 98.4 F 98.5 F Pulse Rate 67 67 68 Respiratory Rate 16 14 Blood Pressure 122/103 H 122/103 H 142/87 H Pulse Oximetry 100 100 99 Intake & Output 05/19/18 05/20/18 05/20/18 18:59 06:59 18:59 Intake Total 420 / 420 1600 / 1600 Balance 420 / 420 1600 / 1600 Weight 104.33 kg Intake: IV 420 / 420 NS + KCl 20 mEq Inj 1,000 ML @ 420 / 420 140 mls/hr IV.CONT .Q7H9M [facility] Rx#:[id number] Intake (Blood Product) Amt 800 / 800 Rbc As-3 Leukoreduced Unit 400 / 400 [id number] Rbc As-3 Leukoreduced Unit 400 / 400 [id number] Autotransfusion Amount 800 / 800 Other: Date of Last Bowel Movement 05/19/18 # Bowel Movements 1 <Maggy Arias - 05/20/18 11:25> Vital Signs 05/18/18 12:00 05/18/18 16:00 05/18/18 20:00 Temperature 98.1 F 99.5 F 97.9 F Pulse Rate 90 89 84 Respiratory Rate 20 20 16 Blood Pressure 151/97 H 139/72 133/73 Pulse Oximetry 99 98 99 05/19/18 00:00 05/19/18 04:00 05/19/18 08:00 Temperature 98.6 F 98.2 F 99.1 F Pulse Rate 111 H 84 72 Respiratory Rate 19 16 16 Blood Pressure 140/70 152/87 H 129/69 Pulse Oximetry 96 98 100 <Renata Fonseca - 05/19/18 10:57> Narrative: GENERAL: Patient sitting up in bed. Initially, patient with exaggerated movements of upper extremity but still when conversing. SKIN: Warm and dry. HEAD: Normocephalic. EYES: Pupils equal and round. No scleral icterus. No injection or drainage. ENT: No nasal bleeding or discharge. Mucous membranes pink and moist. CARDIOVASCULAR: Regular rate and rhythm. JAK. RESPIRATORY: No accessory muscle use. Clear to auscultation. Breath sounds equal bilaterally. GASTROINTESTINAL: Positive bowel sounds. Abdomen soft, nondistended, non-tender. MUSCULOSKELETAL: Extremities without clubbing, cyanosis, or edema. No obvious deformities. NEUROLOGICAL: Awake and alert. No obvious cranial nerve deficits. Normal speech. PSYCHIATRIC: Insight and judgment fair. <Renata Fonseca - 05/19/18 10:57> Assessment and Plan - Assessment (1) Cocaine intoxication Code(s): F14.929 - Cocaine use, unspecified with intoxication, unspecified Status: Resolved (2) Altered mental status Code(s): R41.82 - Altered mental status, unspecified Status: Acute (3) Anemia Code(s): D64.9 - Anemia, unspecified Status: Chronic (4) Heart murmur Code(s): R01.1 - Cardiac murmur, unspecified Status: Acute (5) Hypokalemia Code(s): E87.6 - Hypokalemia Status: Resolved <Maggy Arias - 05/20/18 11:25> (1) Cocaine intoxication Code(s): F14.929 - Cocaine use, unspecified with intoxication, unspecified Status: Resolved (2) Altered mental status Code(s): R41.82 - Altered mental status, unspecified Status: Resolved (3) Anemia Code(s): D64.9 - Anemia, unspecified Status: Chronic (4) Heart murmur Code(s): R01.1 - Cardiac murmur, unspecified Status: Acute (5) Hypokalemia Code(s): E87.6 - Hypokalemia Status: Resolved <Renata Fonseca - 05/19/18 10:42> - Assessment and Plan Patient is a 42 year old female who presented via EMS transport to the [place] ED due to strange behavior. She has a history of polysubstance use. In ED, Hgb was found to be 6.9. Patient admitted to observation for evaluation and management of altered mental status and anemia. Altered Mental Status likely secondary to cocaine intoxication - resolving: * Patient had a prior ED visit in March with a similar presentation; she was found to be positive for cocaine at that time. Patient again positive for cocaine during this admission. She admits to polysubstance use in an attempt to commit suicide. * CT scan of head negative for acute bleed. * Ativan 1mg IV q4hr PRN withdrawal. * Consulted case management to assist with housing resources. Patient currently homeless and without a support system. Anemia: * Hgb was 7.7 during prior hospitalization. Thus, anemia is likely chronic. * Hgb 6.8-7.6 over past 48 hrs. No obvious signs/symptoms of acute bleed. * Repeat H&H at 12:00. Monitor closely. Consent for blood administration in chart. * Iron 9L, TIBC 361, %Saturation 2.5, Ferritin 5, Vitamin B12 302, Folate 8.1. * Hemoccult pending. * Ferrous Sulfate 325mg PO BID. * Vitamin B12 1,000mcg PO daily. * Hematology consulted: Iron deficiency anemia. The patient reports that she has heavy menstrual cycles. She also reports seeing blood in her stool. Occult blood is pending at this time. Ferritin is 5, percent saturation is 2.5 , total iron binding capacity is 361 and iron level is 9. This is most consistent with iron deficiency anemia. The patient will need to have intravenous iron sucrose 300 mg x 3 doses; however, I was unable to fully discuss the risks versus benefits of intravenous iron with the patient. I feel that once her mental status recovers, would discuss risks versus benefits and would give intravenous iron. * Nursing to contact Dr. Weaver for possibly consent of patient today. Consent may also be obtained by contacting patient's mother (Magali, ) if patient cannot be consented. Heart Murmur: * New murmur, secondary to anemia versus endocarditis. * Echocardiogram: Normal left ventricular size and wall thickness. The left ventricular systolic function is normal with an estimated ejection fraction in the range of 60-65%. No regional wall motion abnormalities are present. There is trace tricuspid valve regurgitation. The estimated pulmonary arterial pressure is 30 mmHg. Hypokalemia - resolved: * Etiology: malnutrition - patient reports only eating ice chips. FEN: Fluid: * Tolerating PO. Electrolytes: * Monitor and replete as necessary. Nutrition: * Regular diet. DVT prophylaxis: * SCDs. <Renata Fonseca - 05/19/18 10:57> - Attending Attestation Patient seen and examined and agree with the assessment and plan as above <Maggy Arias - 05/20/18 11:25> <Renata Fonseca - Last Filed: 05/19/18 10:42> (3) Anemia Qualifiers: Anemia type: unspecified type Qualified Code(s): D64.9 - Anemia, unspecified <Maggy Arias R - Last Filed: 05/20/18 11:25> (3) Anemia Qualifiers: Anemia type: unspecified type Qualified Code(s): D64.9 - Anemia, unspecified <LabelRenata collins - Last Filed: 05/19/18 10:42> (3) Anemia Qualifiers: Anemia type: unspecified type Qualified Code(s): D64.9 - Anemia, unspecified <Maggy Arias - Last Filed: 05/20/18 11:25> (3) Anemia Qualifiers: Anemia type: unspecified type Qualified Code(s): D64.9 - Anemia, unspecified
[2018-05-19] MEDS: Ferrous Sulfate 325 MG Tablet PO SCH ×2 (11:07→17:00)
--- NOTE | 2018-05-19 11:44 | P.PNADD ---
Addendum to Inpatient Note Reason for Addendum: Corrected Documentation Additional information: Spoke to Dr. Weaver via phone. As a result, following corrections/ clarifications to plan are made: Anemia: * Hgb was 7.7 during prior hospitalization. Thus, anemia is likely chronic. * Hgb 6.8-7.6 over past 48 hrs. No obvious signs/symptoms of acute bleed. * Repeat H&H at 12:00. If Hgb below 7, transfuse 2 units of pRBCs. If patient undergoes transfusion of pRBCs, IV iron will likely not be necessary. * Consent for blood administration in chart. * Iron 9L, TIBC 361, %Saturation 2.5, Ferritin 5, Vitamin B12 302, Folate 8.1. * Hemoccult pending. * Ferrous Sulfate 325mg PO BID. * Vitamin B12 1,000mcg PO daily. * Hematology consulted: Per Dr. Weaver's note: "Iron deficiency anemia. The patient reports that she has heavy menstrual cycles. She also reports seeing blood in her stool. Occult blood is pending at this time. Ferritin is 5, percent saturation is 2.5, total iron binding capacity is 361 and iron level is 9. This is most consistent with iron deficiency anemia. The patient will need to have intravenous iron sucrose 300 mg x 3 doses; however, I was unable to fully discuss the risks versus benefits of intravenous iron with the patient. I feel that once her mental status recovers, would discuss risks versus benefits and would give intravenous iron." * Dr. Weaver was unable to fully discuss the risks versus benefits of IV iron with the patient due to the patient's mental state. Once patient's mentation returns to normal such a conversation may take place if needed. * A signed consent is not required for IV iron. * Recommendations from Dr. Weaver are greatly appreciated.
[2018-05-19 12:33] LABS: Hematocrit 25.6 % (35.0-46.0); Hemoglobin 7.3 gm/dL (11.6-15.3)
[2018-05-19] MEDS ORDERED: Sodium Chlor 0.9% Inj 250 ML IV.SIG SCH (13:00)
--- NOTE | 2018-05-19 16:29 | P.CONGI ---
History of Present Illness Consult date: 05/19/18 Consult reason: Anemia Chief complaint: Altered Mental status, Polysubstance use, anemia History of Present Illness: Ms. Kwon is a 42-year-old female who presented via EMS to [facility] today due to having altered mental status and strange behavior. Patient states that she has a history of using cocaine and has just recently relapsed. During ER stay hemoglobin 6.8 hematocrit 25.5. 05/19/2018 at 1218 hemoglobin 7.3 hematocrit 25.6. Patient reports that she has noted dark red blood in stools onset 1 week ago. She denies any known family history of gastrointestinal cancers or disorders. She denies ever having had a colonoscopy or EGD. Patient denies any prescription medications or blood thinners. Denies the use of NSAIDs or aspirin. Socially-patient states she is homeless and does not drink alcohol but as noted before uses cocaine. Discussed plan for EGD and colonoscopy on Monday patient verbalized understanding and agreement. <Anisa Boyd - Last Filed: 05/19/18 16:30> Review of Systems All other systems reviewed negative except as stated in HPI <Anisa Boyd - Last Filed: 05/19/18 16:30> PMFSH - History History Provided By: Medical Record, Water Systems Engineer / EMT - Medical / Surgical Hx Neg / Unobtainable Medical Problems Denied: Unable to Obtain - Medical History Medical History: Medical History (Last Reviewed 05/17/18 @ 16:16 by Trudy Ortega MD, R1 ) Medical history unknown Substance abuse Surgical history unknown - Tobacco History Smoking Status: Unknown if ever smoked - Alcohol History How Often Do You Have a Drink Containing Alcohol: Unable to Obtain - Substance Use History Substance History: Active Abuse - Travel History Recent Travel in the [place] Within the Last 8 Weeks: No Recent Travel Out of the Country Within the Last 8 Weeks: No - Immunization History Tetanus Immunization: Unable to Assess Hx Influenza Vaccine This Season: Unable to Assess <Anisa Boyd - Last Filed: 05/19/18 16:30> - Medical History Medical History: Medical History (Last Reviewed 05/17/18 @ 16:16 by Trudy Ortega MD, R1 ) Medical history unknown Substance abuse Surgical history unknown <Yosef Powers - Last Filed: 05/19/18 17:22> Medications and Allergies Active Medications: Active Medications Acetaminophen (Tylenol) 650 mg PO Q4H PRN PRN Reason: Temp > 100.4 Cyanocobalamin (Vitamin B12) 1,000 mcg PO DAILY [facility] Last Admin: 05/19/18 09:12 Dose: 1,000 mcg Ferrous Sulfate (Ferosul) 325 mg PO BID@1200,1700 [facility] Last Admin: 05/19/18 11:07 Dose: 325 mg Lorazepam (Ativan Inj) 1 mg IV.PUSH Q4H PRN PRN Reason: WITHDRAWAL Last Admin: 05/19/18 11:07 Dose: 1 mg Ondansetron HCl (Zofran Inj) 4 mg IV.PUSH Q6H PRN PRN Reason: NAUSEA OR VOMITING <Anisa Boyd - Last Filed: 05/19/18 16:30> Active Medications: Active Medications Acetaminophen (Tylenol) 650 mg PO Q4H PRN PRN Reason: Temp > 100.4 Cyanocobalamin (Vitamin B12) 1,000 mcg PO DAILY [facility] Last Admin: 05/19/18 09:12 Dose: 1,000 mcg Ferrous Sulfate (Ferosul) 325 mg PO BID@1200,1700 [facility] Last Admin: 05/19/18 11:07 Dose: 325 mg Lorazepam (Ativan Inj) 1 mg IV.PUSH Q4H PRN PRN Reason: WITHDRAWAL Last Admin: 05/19/18 11:07 Dose: 1 mg Ondansetron HCl (Zofran Inj) 4 mg IV.PUSH Q6H PRN PRN Reason: NAUSEA OR VOMITING Pantoprazole Sodium (Protonix) 40 mg PO DAILY [facility] <Yosef Powers - Last Filed: 05/19/18 17:22> Allergies Allergy/AdvReac Type Severity Reaction Status Date / Time No Known Allergies Allergy Verified 03/25/18 11:03 Home Medications Medication Instructions Recorded Confirmed Type No Known Home Medications 03/25/18 03/25/18 History Exam Vital signs: Vital Signs 05/18/18 20:00 05/19/18 00:00 05/19/18 04:00 Temperature 97.9 F 98.6 F 98.2 F Pulse Rate 84 111 H 84 Respiratory Rate 16 19 16 Blood Pressure 133/73 140/70 152/87 H Pulse Oximetry 99 96 98 05/19/18 08:00 05/19/18 12:00 Temperature 99.1 F 98.9 F Pulse Rate 72 76 Respiratory Rate 16 14 Blood Pressure 129/69 112/57 L Pulse Oximetry 100 100 Intake & Output 05/18/18 05/19/18 05/19/18 18:59 06:59 18:59 Intake Total 2960 / 2960 1010 / 1010 420 / 420 Balance 2960 / 2960 1010 / 1010 420 / 420 Weight 104.326 kg Intake: IV 1999 420 / 420 NS + KCl 20 mEq Inj 1,000 ML @ 1999 420 / 420 140 mls/hr IV.CONT .Q7H9M [facility] Rx#:[id number] Oral 960 / 960 1010 / 1010 Other: # Voids 3 3 # Bowel Movements 2 - Constitutional no acute distress, cooperative, agitated Comments: Rocking back and forth while sitting on side of bed but cooperative with exam - Routine HEENT Exam Head: Present: normocephalic - Routine Neck Exam Present: supple, full ROM - Routine Respiratory Exam Present: CTA bilaterally. Absent: accessory muscle use - Routine Cardiovascular Exam Present: RRR - Routine Abdominal Exam Present: soft, normoactive bowel sounds. Absent: tenderness, distended, guarding, firm - Routine Extremities Exam Present: full ROM, pulses intact. Absent: edema - Routine Skin Exam Present: dry, warm - Routine Neurological Exam Present: alert <Boyd,Anisa - Last Filed: 05/19/18 16:30> Vital signs: Vital Signs 05/18/18 20:00 05/19/18 00:00 05/19/18 04:00 Temperature 97.9 F 98.6 F 98.2 F Pulse Rate 84 111 H 84 Respiratory Rate 16 19 16 Blood Pressure 133/73 140/70 152/87 H Pulse Oximetry 99 96 98 05/19/18 08:00 05/19/18 12:00 05/19/18 16:00 Temperature 99.1 F 98.9 F 99.8 F H Pulse Rate 72 76 75 Respiratory Rate 16 14 16 Blood Pressure 129/69 112/57 L 122/70 Pulse Oximetry 100 100 100 Intake & Output 05/18/18 05/19/18 05/19/18 18:59 06:59 18:59 Intake Total 2960 / 2960 1010 / 1010 420 / 420 Balance 2960 / 2960 1010 / 1010 420 / 420 Weight 104.326 kg Intake: IV 1999 420 / 420 NS + KCl 20 mEq Inj 1,000 ML @ 1999 420 / 420 140 mls/hr IV.CONT .Q7H9M [facility] Rx#:[id number] Oral 960 / 960 1010 / 1010 Other: # Voids 3 3 # Bowel Movements 2 <Yosef Powers - Last Filed: 05/19/18 17:22> Results - Labs CBC & Chem 7: 05/19/18 12:18 05/19/18 06:17 Labs: Laboratory Results - last 24 hr 05/18/18 05/18/18 05/19/18 16:08 16:08 06:17 WBC 5.9 RBC 4.60 Hgb 7.6 L 6.8 L* Hct 27.5 L 25.5 L MCV 55.5 L MCH 14.8 L MCHC 26.7 L RDW 26.4 H Plt Count 363 MPV 8.8 Sodium Potassium 3.6 Chloride Carbon Dioxide Anion Gap BUN Creatinine Estimated GFR Random Glucose Calcium MTS Gel Crossmatch 05/19/18 05/19/18 05/19/18 06:17 12:18 12:43 WBC RBC Hgb 7.3 L Hct 25.6 L MCV MCH MCHC RDW Plt Count MPV Sodium 146 H Potassium 3.7 Chloride 112 H Carbon Dioxide 23.5 Anion Gap 11 BUN 5 L Creatinine 0.75 Estimated GFR Greater than 89 Random Glucose 72 L Calcium 8.0 L MTS Gel Crossmatch See Detail <Anisa Boyd - Last Filed: 05/19/18 16:30> - Labs CBC & Chem 7: 05/19/18 12:18 05/19/18 06:17 Labs: Laboratory Results - last 24 hr 05/19/18 05/19/18 05/19/18 06:17 06:17 12:18 WBC 5.9 RBC 4.60 Hgb 6.8 L* 7.3 L Hct 25.5 L 25.6 L MCV 55.5 L MCH 14.8 L MCHC 26.7 L RDW 26.4 H Plt Count 363 MPV 8.8 Sodium 146 H Potassium 3.7 Chloride 112 H Carbon Dioxide 23.5 Anion Gap 11 BUN 5 L Creatinine 0.75 Estimated GFR Greater than 89 Random Glucose 72 L Calcium 8.0 L MTS Gel Crossmatch 05/19/18 12:43 WBC RBC Hgb Hct MCV MCH MCHC RDW Plt Count MPV Sodium Potassium Chloride Carbon Dioxide Anion Gap BUN Creatinine Estimated GFR Random Glucose Calcium MTS Gel Crossmatch See Detail <Yosef Powers - Last Filed: 05/19/18 17:22> Assessment and Plan (1) Anemia Status: Chronic Code(s): D64.9 - Anemia, unspecified (2) Bloody stool Status: Acute Code(s): K92.1 - Melena - Plan Ms. Kwon is a 42-year-old female who presented via EMS to [facility] today due to having altered mental status and strange behavior. Patient states that she has a history of using cocaine and has just recently relapsed. During ER stay hemoglobin 6.8 hematocrit 25.5. 05/19/2018 at 1218 hemoglobin 7.3 hematocrit 25.6. Patient reports that she has noted dark red blood in stools onset 1 week ago. Patient mentions that she has heavy menstrual cycles. Awaiting fecal occult blood. She denies any known family history of gastrointestinal cancers or disorders. She denies ever having had a colonoscopy or EGD. Patient denies any prescription medications or blood thinners. Denies the use of NSAIDs or aspirin. Socially-patient states she is homeless and does not drink alcohol but as noted before uses cocaine. Discussed plan for EGD and colonoscopy on Monday patient verbalized understanding and agreement. As per addendum note by Dr. Emeli Fonseca, patient's hemoglobin was 7.7 during prior hospitalization anemia may be chronic. We will monitor closely. Plan: -Regular diet as tolerated -Obtain consent for EGD colonoscopy-plan for Monday -Continue to monitor patient for any noted bleeding-no obvious signs of acute bleeding -Monitor labs -Transfuse if needed -Anti-emetics as needed -Will add PPI -Hemoccult pending- -Hematology has been consulted for chronic anemia -Supportive care -Further recommendations to follow This patient has been seen by myself and Dr. Powers and this note is written on his behalf - Attending Attestation Dr. Powers <Anisa Boyd - Last Filed: 05/19/18 16:30> (1) Anemia Status: Chronic Code(s): D64.9 - Anemia, unspecified (2) Bloody stool Status: Acute Code(s): K92.1 - Melena - Plan Seen and examined with MAMMOGRAPHER, egd/colonoscopy planned for monday. Transfuse as needed. Discussed with pt. Thank you <Yosef Powers - Last Filed: 05/19/18 17:22> <Anisa Boyd - Last Filed: 05/19/18 16:30> (1) Anemia Qualifiers: Anemia type: unspecified type Qualified Code(s): D64.9 - Anemia, unspecified <Yosef Powers - Last Filed: 05/19/18 17:22> (1) Anemia Qualifiers: Anemia type: unspecified type Qualified Code(s): D64.9 - Anemia, unspecified
--- NOTE | 2018-05-19 16:53 | P.PNONC ---
Subjective Interval history: Resting in bed. Drowsy. Intermittently responds to questions. Objective Vital Signs/Intake & Output: Vital Signs 05/18/18 20:00 05/19/18 00:00 05/19/18 04:00 Temperature 97.9 F 98.6 F 98.2 F Pulse Rate 84 111 H 84 Respiratory Rate 16 19 16 Blood Pressure 133/73 140/70 152/87 H Pulse Oximetry 99 96 98 05/19/18 08:00 05/19/18 12:00 Temperature 99.1 F 98.9 F Pulse Rate 72 76 Respiratory Rate 16 14 Blood Pressure 129/69 112/57 L Pulse Oximetry 100 100 Intake & Output 05/18/18 05/19/18 05/19/18 18:59 06:59 18:59 Intake Total 2960 / 2960 1010 / 1010 420 / 420 Balance 2960 / 2960 1010 / 1010 420 / 420 Weight 104.326 kg Intake: IV 1999 420 / 420 NS + KCl 20 mEq Inj 1,000 ML @ 1999 420 / 420 140 mls/hr IV.CONT .Q7H9M [facility] Rx#:[id number] Oral 960 / 960 1010 / 1010 Other: # Voids 3 3 # Bowel Movements 2 Result Diagrams: 05/19/18 12:18 05/19/18 06:17 Laboratory Results: Laboratory Results - last 24 hr 05/19/18 05/19/18 05/19/18 06:17 06:17 12:18 WBC 5.9 RBC 4.60 Hgb 6.8 L* 7.3 L Hct 25.5 L 25.6 L MCV 55.5 L MCH 14.8 L MCHC 26.7 L RDW 26.4 H Plt Count 363 MPV 8.8 Sodium 146 H Potassium 3.7 Chloride 112 H Carbon Dioxide 23.5 Anion Gap 11 BUN 5 L Creatinine 0.75 Estimated GFR Greater than 89 Random Glucose 72 L Calcium 8.0 L MTS Gel Crossmatch 05/19/18 12:43 WBC RBC Hgb Hct MCV MCH MCHC RDW Plt Count MPV Sodium Potassium Chloride Carbon Dioxide Anion Gap BUN Creatinine Estimated GFR Random Glucose Calcium MTS Gel Crossmatch See Detail Culture Results: Microbiology 05/19/18 11:11 Stool Occult Blood (BRANDY) - Final Stool Hemoccult negative Medications: Active Medications Generic Name Dose Route Start Last Admin Trade Name Freq PRN Reason Stop Dose Admin Cyanocobalamin 1,000 mcg 05/19/18 09:00 05/19/18 09:12 Vitamin B12 PO 1,000 mcg DAILY [facility] Administration Ferrous Sulfate 325 mg 05/18/18 12:00 05/19/18 11:07 Ferosul PO 325 mg BID@1200,1700 [facility] Administration Lorazepam 1 mg 05/18/18 02:19 05/19/18 11:07 Ativan Inj IV.PUSH 1 mg Q4H PRN Administration WITHDRAWAL Objective Remarks: GENERAL: Well-nourished, well-developed patient. SKIN: Warm and dry. HEAD: Normocephalic. EYES: No scleral icterus. No injection or drainage. CARDIOVASCULAR: Regular rate and rhythm without murmurs. RESPIRATORY: Breath sounds equal bilaterally. No accessory muscle use. GASTROINTESTINAL: Abdomen soft, non-tender, nondistended. EXTREMITIES: No cyanosis, or edema. MUSCULOSKELETAL: Adequate muscle tone. NEUROLOGICAL: No obvious focal deficit. Assessment/Plan - Plan 1. Anemia with evidence of iron deficiency and vitamin B12. 2. vitamin b12 deficiency: on oral replacement 3. Iron deficiency: on oral replacement. No IV iron at this time. Will continue to readdress.
[2018-05-19 21:28] LABS: Hematocrit 25.5 % (35.0-46.0)
[2018-05-19 21:34] LABS: Hemoglobin 6.9 gm/dL (11.6-15.3)
[2018-05-20 08:44] VITALS: BP 142/87; PULSE 68; RESP 14; TEMP 98.5; O2SAT 99
--- NOTE | 2018-05-20 10:35 | P.DS ---
Date of admission: 05/17/18 15:11 Primary care physician: No Primary Care Physician Brief History from admission: Story as provided by ED physician. Pt unable to provide any history. Did not answer to questions. Was shaking and moving in bed. Was slightly cooperative with minimal physical exam. DS: Diagnosis - Discharge Diagnosis (1) Altered mental status Status: Acute (2) Substance abuse Status: Chronic (3) Anemia Status: Chronic (4) Hypokalemia Status: Resolved DS: Summary Hospital Course: Pt presented to ED with intoxication of cocaine and AMS. She was unable to give a history. She was found to be severly anemic w/ Hb of 6.9 on admission. She received 2 U pRBC on 05/19 and left the hospital without notifying anyone. When I attempted to see pt this morning she was not in her room. Nurse stated she saw pt earlier in the morning and pt was somewhat confused on how long she had been in the hospital and wanted to leave. Nurse advised to wait for the doctors , but pt left AMA. I did not see pt this morning and she was not notified of the risk or benefits of leaving AMA. - Time Spent with Patient Total time spent providing and/or coordinating discharge services: Less than 30 minutes - Quality: VTE Deep Vein Thrombosis/Pulmonary Embolism Present on Admission: No Exam Vital signs: Vital Signs 05/19/18 12:00 05/19/18 16:00 05/19/18 20:00 Temperature 98.9 F 99.8 F H 98.3 F Pulse Rate 76 75 78 Respiratory Rate 14 16 16 Blood Pressure 112/57 L 122/70 130/74 Pulse Oximetry 100 100 100 05/19/18 22:54 05/19/18 23:15 05/20/18 00:00 Temperature 98.7 F 98.7 F 99.2 F Pulse Rate 66 68 69 Respiratory Rate 15 15 16 Blood Pressure 125/76 130/82 125/78 Pulse Oximetry 100 100 100 05/20/18 01:07 05/20/18 01:25 05/20/18 01:48 Temperature 99.0 F 98.6 F 98.1 F Pulse Rate 66 60 73 Respiratory Rate 16 14 16 Blood Pressure 138/104 H 146/83 H 139/73 Pulse Oximetry 100 100 100 05/20/18 04:00 05/20/18 04:16 05/20/18 08:00 Temperature 98.4 F 98.4 F 98.5 F Pulse Rate 67 67 68 Respiratory Rate 16 14 Blood Pressure 122/103 H 122/103 H 142/87 H Pulse Oximetry 100 100 99 Intake & Output 05/19/18 05/20/18 05/20/18 18:59 06:59 18:59 Intake Total 420 / 420 1600 / 1600 Balance 420 / 420 1600 / 1600 Weight 104.33 kg Intake: IV 420 / 420 NS + KCl 20 mEq Inj 1,000 ML @ 420 / 420 140 mls/hr IV.CONT .Q7H9M [facility] Rx#:[id number] Intake (Blood Product) Amt 800 / 800 Rbc As-3 Leukoreduced Unit 400 / 400 [id number] Rbc As-3 Leukoreduced Unit 400 / 400 [id number] Autotransfusion Amount 800 / 800 Other: Date of Last Bowel Movement 05/19/18 # Bowel Movements 1 Narrative: Pt missing from room this morning. no PE performed Results Procedures completed during hospitalization: none Labs on day of discharge: Labs from last 24 hours 05/19/18 05/19/18 05/19/18 21:14 12:43 12:18 Hgb 6.9 L* 7.3 L Hct 25.5 L 25.6 L MTS Gel Crossmatch See Detail 05/17/18 15:03 Hgb Hct MTS Gel Crossmatch See Detail - Impressions ITS Impressions Head CT 05/17/18 12:46 CONCLUSION: 1. No evidence of acute intracranial abnormality. . Discharge Plan - Discharge Disposition Patient Disposition: Against Medical Advice - Discharge Condition Condition: Fair - Discharge Order Discharge Orders: AMA Discharge (Routine); Ordered 05/20/18 Ordered By: Trudy Ortega - Physicians Team Primary Care Provider: Primary Care Jazlyn Montoya Attending Provider: Maggy Arias Other Providers: Tracy Weaver ; Yosef Powers MD
== END 2018-05-20 09:47 | disposition left against medical advice (07) ==
LOC: NEPE 12:29 → NEDA 12:29 → NEPGCP 16:57
PROVIDERS: ADMIT Family Medicine; ATTEND Family Medicine